=== PATIENT | female | born 1985 | race Caucasian/White ===

== ENCOUNTER 2016-12-28 13:11 | Emergency (ER) | payer SELFPAY ==
[2016-12-28 15:49] VITALS: BP 108/67
--- NOTE | 2016-12-28 19:58 | UC ---
Sam Rogers Thomas, scribed for Ameya Daniels MD on 12/28/16 at 1517 . Throat Pain/Nasal Adan HPI - HPI Summary HPI Summary: The pt is a 31 y/o F presenting to Urgent Care c/o a sore throat that began yesterday. She was recently diagnosed with Strep Throat about two weeks ago at [facility]. The patient was put on a course of Amoxycilin starting two weeks ago that she finished 3-4 days ago. The pain is rated 4/10. Pt has no other complaints at this time. Pt denies fevers and chills. - History of Current Complaint Chief Complaint: UCGeneralIllness Stated Complaint: THROAT PAIN Time Seen by Provider: 12/28/16 14:35 Hx Obtained From: Patient Hx Last Menstrual Period: 1 week ago Onset/Duration: Lasting Days - 1, Still Present Pain Intensity: 4 Pain Scale Used: 0-10 Numeric Cough: None Associated Signs & Symptoms: Negative: Fever, Other - chills Related History: Other (Noted In Comments) - Recent Strep diagnosis - Allergies/Home Medications Allergies/Adverse Reactions: Allergies Allergy/AdvReac Type Severity Reaction Status Date / Time No Known Allergies Allergy Verified 12/11/16 22:04 PMH/Surg Hx/FS Hx/Imm Hx Previously Healthy: Yes - NEGATIVE: DM, HTN Other History Of: Negative For: Anticoagulant Therapy - Surgical History Surgical History: Yes Surgery Procedure, Year, and Place: c section - Family History Known Family History: Negative: Respiratory Disease - Social History Lives: With Family Alcohol Use: None Substance Use Type: None Smoking Status (MU): Never Smoked Tobacco Review of Systems Constitutional: Other - NEGATIVE: fever ENT: Sore Throat Is Patient Immunocompromised?: No All Other Systems Reviewed And Are Negative: Yes Physical Exam Triage Information Reviewed: Yes Vital Signs: Initial Vital Signs Temp 98.4 F 12/28/16 13:32 Pulse 110 12/28/16 13:32 Resp 18 12/28/16 13:32 BP 131/61 12/28/16 13:32 Pulse Ox 99 12/28/16 13:32 Vital Signs Reviewed: Yes - Additional Comments VITAL SIGNS: Reviewed. GENERAL: Patient is a well developed and nourished female who is lying comfortable in the stretcher. Patient is not in any acute respiratory distress. HEAD AND FACE: Normocephalic EYES: PERRLA, EOMI x 2. EARS: Hearing grossly intact. MOUTH: Oropharynx within normal limits. NECK: Supple, trachea is midline, no adenopathy, no JVD, no carotid bruit. CHEST: Symmetric, no tenderness at palpation LUNGS: Clear to auscultation bilaterally. No wheezing or crackles. CVS: Regular rate and rhythm, S1 and S2 present, no murmurs or gallops appreciated. ABDOMEN: Soft, non-tender. Bowel sounds are normal. No abdominal abnormal pulsations. EXTREMITIES: Full ROM in all major joints, no edema, no cyanosis or clubbing. NEURO: Alert and oriented x 3. No acute neurological deficits. Speech is normal and follows commands. SKIN: Dry and warm Throat Pain/Nasal Course/Dx - Course Course Of Treatment: Rapid Strep was Positive. Assessment/Plan: The pt is a 31 y/o F presenting to Urgent Care c/o a sore throat that began yesterday. She was recently diagnosed with Strep Throat and she finished a course of Amoxycilin 3-4 days ago. Rapid Strep was positive. Patient is diagnosed with strep pharyngitis and discharged with a prescription for Augmentin. - Differential Dx/Diagnosis Differential Diagnosis/HQI/PQRI: Laryngitis, Otitis Media, Pharyngitis, URI Provider Diagnoses: Strep pharyngitis Discharge - Discharge Plan Condition: Stable Disposition: HOME Prescriptions: Amoxicillin/Clavulanate TAB* [Augmentin TAB 875*] 875 mg PO BID #20 tab Patient Education Materials: Pharyngitis (ED), Strep Throat (ED) Referrals: Francesca Wilcox MD [Primary Care Provider] - 3 Days Additional Instructions: Follow up with your primary care provider in 3 days. Return to urgent care for any new or worsening symptoms. The documentation as recorded by the Sam paige Thomas accurately reflects the service I personally performed and the decisions made by , Ameya Daniels MD.
== END 2016-12-28 15:49 | disposition home or self-care (01) ==
LOC: UCEAST 13:11
DX: J02.0 Streptococcal pharyngitis (principal)
CPT/HCPCS: 87651; 99212; G0463

== ENCOUNTER 2017-02-18 17:37 | Emergency (ER) | payer SELFPAY ==
[2017-02-18 17:51] VITALS: BP 132/75
--- NOTE | 2017-02-18 18:30 | UC ---
Respiratory Complaint HPI - History of Current Complaint Chief Complaint: UCRespiratory Stated Complaint: COUGH Time Seen by Provider: 02/18/17 18:17 Hx Obtained From: Patient Hx Last Menstrual Period: 02/13/17 Onset/Duration: Gradual Onset - started this am and worse over today, 2 memebers in house have same symps and are being treated with antibx Timing: Constant Severity Initially: Mild Severity Currently: Moderate Character: Cough: Nonproductive Associated Signs And Symptoms: Negative: Fever, Wheezing, Hemoptysis - Allergies/Home Medications Allergies/Adverse Reactions: Allergies Allergy/AdvReac Type Severity Reaction Status Date / Time No Known Allergies Allergy Verified 02/18/17 17:51 PMH/Surg Hx/FS Hx/Imm Hx Previously Healthy: Yes Other History Of: Negative For: Anticoagulant Therapy - Surgical History Surgical History: Yes Surgery Procedure, Year, and Place: c section - Family History Known Family History: Positive: None Negative: Respiratory Disease - Social History Occupation: Employed Full-time - [employer] Lives: With Family Alcohol Use: None Substance Use Type: None Smoking Status (MU): Former Smoker Type: Cigarettes - Immunization History Most Recent Influenza Vaccination: 2017 Vaccination Up to Date: Yes Review of Systems Constitutional: Negative Skin: Negative Eyes: Negative Respiratory: Cough Cardiovascular: Negative Gastrointestinal: Negative Neurological: Negative Psychological: Negative All Other Systems Reviewed And Are Negative: Yes Physical Exam Triage Information Reviewed: Yes Appearance: Well-Appearing, No Pain Distress, Obese Vital Signs: Initial Vital Signs Temp 98.1 F 02/18/17 17:46 Pulse 86 02/18/17 17:46 Resp 16 02/18/17 17:46 BP 132/75 02/18/17 17:46 Pulse Ox 100 02/18/17 17:46 Vital Signs Reviewed: Yes Eyes: Positive: Conjunctiva Clear ENT Exam: Normal Respiratory: Positive: Lungs clear Cardiovascular Exam: Normal Musculoskeletal Exam: Normal Neurological Exam: Normal Psychological Exam: Normal Skin Exam: Normal UC Diagnostic Evaluation - Laboratory O2 Sat by Pulse Oximetry: 100 Respiratory Course/Dx - Differential Dx/Diagnosis Differential Diagnosis/HQI/PQRI: Bronchitis, Influenza, Lower Resp Infection, Sinusitis Provider Diagnoses: bronchitis Discharge - Discharge Plan Condition: Stable Disposition: HOME Prescriptions: Azithromycin TAB* [Zithromax TAB (Z-FELICITAS) 250 mg #6 tabs] 2 tab PO .TODAY, THEN 1 DAILY #1 felicitas Patient Education Materials: Acute Bronchitis (ED) Referrals: Francesca Wilcox MD [Primary Care Provider] - 2 Days Additional Instructions: drink plenty of fluids take meds as directed rest
== END 2017-02-18 18:45 | disposition home or self-care (01) ==
LOC: UCEAST 17:37
DX: J40 Bronchitis, not specified as acute or chronic (principal)
CPT/HCPCS: 99212; G0463

== ENCOUNTER 2017-05-14 15:27 | Emergency (ER) | payer MEDICAID ==
[2017-05-14 15:43] VITALS: BP 137/85
--- NOTE | 2017-05-14 15:52 | UC ---
Back Pain HPI - HPI Summary HPI Summary: This young lady comes to the urgent care today with bilateral lower back pain. She's had no specific injury. 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 She woke up this morning with worse back pain she never had. She has tried both ice and heat without relief - History of Current Complaint Chief Complaint: UCBackPain Stated Complaint: BACK PAIN/ SPASMS Time Seen by Provider: 05/14/17 15:39 Hx Obtained From: Patient Hx Last Menstrual Period: 05/11/17 ?: No Onset/Duration: Sudden Onset, Lasting Hours, Still Present Timing: Constant Severity Initially: Moderate Severity Currently: Moderate Pain Intensity: 5 Pain Scale Used: 0-10 Numeric Back Pain: Is Discrete @ - Bilateral lower back pain Character: Aching, Spasmodic Aggravating Factor(s): Movement Alleviating Factor(s): Rest Associated Signs And Symptoms: Positive: Negative Related History: Occupational Injury - Allergies/Home Medications Allergies/Adverse Reactions: Allergies Allergy/AdvReac Type Severity Reaction Status Date / Time No Known Allergies Allergy Verified 05/14/17 15:44 PMH/Surg Hx/FS Hx/Imm Hx Previously Healthy: Yes Other History Of: Negative For: Anticoagulant Therapy - Surgical History Surgical History: Yes Surgery Procedure, Year, and Place: c section - Family History Known Family History: Positive: None Negative: Respiratory Disease - Social History Occupation: Employed Full-time Lives: With Family Alcohol Use: None Substance Use Type: None Smoking Status (MU): Former Smoker Type: Cigarettes - Immunization History Most Recent Influenza Vaccination: 2017 Vaccination Up to Date: Yes Review of Systems Constitutional: Negative Skin: Negative Eyes: Negative ENT: Negative Respiratory: Negative Cardiovascular: Negative Gastrointestinal: Negative Genitourinary: Negative Motor: Negative Neurovascular: Negative Musculoskeletal: Arthralgia, Myalgia Neurological: Negative Psychological: Negative Is Patient Immunocompromised?: No All Other Systems Reviewed And Are Negative: Yes Physical Exam Triage Information Reviewed: Yes Appearance: Well-Appearing, No Pain Distress, Well-Nourished Vital Signs: Initial Vital Signs Temp 97.6 F 05/14/17 15:35 Pulse 97 05/14/17 15:35 Resp 16 05/14/17 15:35 BP 137/85 05/14/17 15:35 Pulse Ox 98 05/14/17 15:35 Vital Signs Reviewed: Yes Eye Exam: Normal Eyes: Positive: Conjunctiva Clear ENT Exam: Normal ENT: Positive: Normal ENT inspection, Hearing grossly normal. Negative: Trismus , Muffled voice, Hoarse voice Neck exam: Normal Neck: Positive: Supple, Nontender Respiratory Exam: Normal Respiratory: Positive: Chest non-tender, Lungs clear, Normal breath sounds, No respiratory distress, No accessory muscle use Cardiovascular Exam: Normal Cardiovascular: Positive: RRR, No Murmur, Pulses Normal, Brisk Capillary Refill Abdominal Exam: Normal Abdomen Description: Positive: Nontender, No Organomegaly, Soft. Negative: CVA Tenderness (R), CVA Tenderness (L) Bowel Sounds: Positive: Present Musculoskeletal Exam: Other Musculoskeletal: Positive: Strength Intact, ROM Intact, No Edema, Other: - Lower tube backer to palpation Neurological Exam: Normal Neurological: Positive: Alert, Muscle Tone Normal Psychological Exam: Normal Psychological: Positive: Normal Response To Family Skin Exam: Normal Back Pain Course/Dx - Course Course Of Treatment: Ibuprofen and Flexeril, core strengthening exercises, lower back exercise,s ice or heat for comfort ,physical therapy referral follow with PCP - Differential Dx/Diagnosis Provider Diagnoses: Low back strain with muscle spasm Discharge - Sign-Out/Discharge Documenting (check all that apply): Discharge - Discharge Plan Condition: Stable Disposition: HOME Prescriptions: Cyclobenzaprine TAB* [Flexeril 10 MG TAB*] 10 mg PO TID PRN #15 tab PRN Reason: muscle spasm Ibuprofen TAB* [Motrin TAB* 600 MG] 600 mg PO Q6H PRN #40 tab PRN Reason: pain Patient Education Materials: Low Back Strain (ED), Core Strengthening Exercises (GEN), Lower Back Exercises (ED) Forms: *Work Release Referrals: [facility] [place] PHYSICIAN REFERRAL [Outside] - 3 Days - Billing Disposition and Condition Condition: STABLE Disposition: HOME
== END 2017-05-14 16:18 | disposition home or self-care (01) ==
LOC: UCEAST 15:27
DX: S39.012A Strain of muscle, fascia and tendon of lower back, initial encounter (principal); X58.XXXA Exposure to other specified factors, initial encounter; Y93.F9 Activity, other caregiving; Y92.129 Unspecified place in nursing home as the place of occurrence of the external cause; Y99.0 Civilian activity done for income or pay; M62.830 Muscle spasm of back; Z87.891 Personal history of nicotine dependence
CPT/HCPCS: 81003; 99212; G0463

== ENCOUNTER 2017-07-04 14:27 | Emergency (ER) | payer MEDICAID, OTHER ==
[2017-07-04 15:03] VITALS: BP 117/76
--- NOTE | 2017-07-04 15:09 | UC ---
Dental HPI - HPI Summary HPI Summary: 32 yo female presents with dental pain. She tells me that 4 days ago she underwent a dental procedure where the dentist injected novacine to her lower gums. Today has an enlarged white spot and pain on one of the injection sites. Denies drainage, bleeding, fever/chills - History of Current Complaint Chief Complaint: UCDentalProblem Stated Complaint: GUM PAIN IN MOUTH Time Seen by Provider: 07/04/17 15:09 Hx Obtained From: Patient Hx Last Menstrual Period: due Severity: Mild Pain Intensity: 2 Pain Scale Used: 0-10 Numeric - Allergies/Home Medications Allergies/Adverse Reactions: Allergies Allergy/AdvReac Type Severity Reaction Status Date / Time No Known Allergies Allergy Verified 07/04/17 15:03 PMH/Surg Hx/FS Hx/Imm Hx - Additional Past Medical History Additional PMH: None Previously Healthy: Yes Other History Of: Negative For: Anticoagulant Therapy - Surgical History Surgical History: Yes Surgery Procedure, Year, and Place: c section - Family History Known Family History: Positive: None Negative: Respiratory Disease - Social History Occupation: Employed Full-time Lives: With Family Alcohol Use: None Substance Use Type: None Smoking Status (MU): Former Smoker Type: Cigarettes - Immunization History Most Recent Influenza Vaccination: 2017 Vaccination Up to Date: Yes Review of Systems Constitutional: Negative Skin: Negative Eyes: Negative ENT: Dental Pain Respiratory: Negative Cardiovascular: Negative Neurovascular: Negative Neurological: Negative Psychological: Negative All Other Systems Reviewed And Are Negative: Yes Physical Exam - Summary Physical Exam Summary: GENERAL: NAD. WDWN. No pain distress. SKIN: No rashes, sores, lesions, or open wounds. HEENT: Nose: Nasal mucosa pink and moist. NTTP maxillary and frontal sinus. Throat: Posterior oropharynx without exudates, erythema, or tonsillar enlargement. Uvula midline. NECK: Supple. Nontender. No lymphadenopathy. CHEST: No accessory muscle use. Breathing comfortably and in no distress. CV: Pulses intact. Brisk cap refill. NEURO: Alert. CN II-XII grossly intact. PSYCH: Age appropriate behavior. Triage Information Reviewed: Yes Vital Signs: Initial Vital Signs Temp 98.7 F 07/04/17 14:58 Pulse 104 07/04/17 14:58 Resp 20 07/04/17 14:58 BP 117/76 05/22/18 14:58 Pulse Ox 97 07/04/17 14:58 Dental: Positive: Percussion Tenderness @ - Gum line tooth 26-27, Cellulitis @ - Gum line tooth 26-27, Other: - Multiple missing teeth. Negative: Dental Fracture @, Cervical Lymphadenopathy, Bleeding Dental Complaint Course/Dx - Course Course Of Treatment: Dental abscess Gum line tooth 26-27 - amoxicillin - Differential Dx/Diagnosis Provider Diagnoses: Dental abscess Discharge - Sign-Out/Discharge Documenting (check all that apply): Discharge/Admit/Transfer - Discharge Plan Condition: Stable Disposition: HOME Prescriptions: Amoxicillin PO (*) [Amoxicillin 500 MG CAP*] 500 mg PO Q12H #14 cap Patient Education Materials: Dental Abscess (ED) Referrals: Vern Roberts MD [Primary Care Provider] - Additional Instructions: If you develop a fever, shortness of breath, chest pain, new or worsening symptoms - please call your PCP or go to the ED. - Billing Disposition and Condition Condition: STABLE Disposition: HOME
== END 2017-07-04 15:30 | disposition home or self-care (01) ==
LOC: UCEAST 14:27
DX: K04.7 Periapical abscess without sinus (principal); Z87.891 Personal history of nicotine dependence
CPT/HCPCS: 99212; G0463